=== PATIENT | female | born 1935 | race Caucasian/White ===

== ENCOUNTER 2017-05-07 23:50 | Inpatient (IN) | payer MEDICARE ==
[~2017-05-07] VITALS: Ht 162.6 cm; Wt 88.0 kg
[~2017-05-07 23:50] MED LIST: ALPR-624 PO; ASPI-611 PO; ATOR10TA70 PO; HYDR-569 PO; LEVO50TA8 PO; LOSA1TAB36 PO; METF1000 PO; TRAM50TA2 PO
[2017-05-08] VITALS: BP 121/58
[2017-05-08] MEDS ORDERED: ondansetron/PF 4mg/2ml inj IV ONE (00:20)
[2017-05-08] MEDS ORDERED: HYDROcodone/acetaminophen 5mg/325mg tablet PO ONE (00:20)
[2017-05-08 01:29] LABS: BASOPHILS % (AUTO) 0.3 % (0-1); EOSINOPHILS # (AUTO) 0.1 X10'3 (0-0.9); EOSINOPHILS % (AUTO) 1.2 % (0-6); HEMATOCRIT 33.1 % (35.0-45.0); HEMOGLOBIN 11.2 g/dl (12.0-16.0); LYMPHOCYTES # (AUTO) 1.5 X10'3 (1.1-4.8); LYMPHOCYTES % (AUTO) 15.1 % (21-51); MEAN CORPUSCULAR HEMOGLOBIN 26.6 PG (27.0-31.0); MEAN CORPUSCULAR HGB CONC 33.8 % (33.0-36.5); MEAN CORPUSCULAR VOLUME 78.8 FL (78-98); MEAN PLATELET VOLUME 8.3 FL (7.4-10.4); MONOCYTES # (AUTO) 0.5 X10'3 (0-0.9); MONOCYTES % (AUTO) 5.2 % (2-12); NEUTROPHILS # (AUTO) 7.8 X10'3 (1.8-7.7); NEUTROPHILS % (AUTO) 78.2 % (42-75); PLATELET COUNT 307 X10'3 (140-440); RED CELL DISTRIBUTION WIDTH 15.1 % (11.5-14.5); WHITE BLOOD COUNT 9.9 X10'3 (4.5-11.0)
[2017-05-08 01:48] LABS: ALANINE AMINOTRANSFERASE 914 U/L (12-78); ALBUMIN 3.4 G/DL (3.4-5.0); ALBUMIN/GLOBULIN RATIO 0.9 (1.1-1.5); ALKALINE PHOSPHATASE 260 IU/L (46-116); ANION GAP 10 (8-16); BILIRUBIN,TOTAL 1.5 MG/DL (0.1-1.0); BLOOD UREA NITROGEN 22 MG/DL (7-18); BUN/CREATININE RATIO 14.1 (6.6-38.0); CALCIUM 9.2 MG/DL (8.5-10.1); CHLORIDE 99 MMOL/L (99-107); CREATININE 1.56 MG/DL (0.40-0.90); GLUCOSE 235 MG/DL (70-104); MAGNESIUM 1.8 MG/DL (1.5-2.4); POTASSIUM 4.3 MMOL/L (3.5-5.1); SODIUM 133 MMOL/L (135-145); TOTAL CARBON DIOXIDE 23.8 MMOL/L (24-32); TOTAL PROTEIN 7.3 G/DL (6.4-8.2); eGFR 32 ML/MIN
[2017-05-08 01:57] LABS: ASPARTATE AMINO TRANSFERASE 1106 U/L (10-37)
[2017-05-08 02:03] LABS: LIPASE 28194 U/L (73-393)
[2017-05-08 02:06] LABS: PARTIAL THROMBOPLASTIN TIME 22 SECONDS (22-32); PROTHROMBIN TIME 9.7 SECONDS (9.0-12.0)
[2017-05-08] MEDS ORDERED: normal saline 1000ML IV soln IVB ONE (02:15)
[2017-05-08] MEDS ORDERED: piperacillin/tazo 4.5gm/100ml 100 ML IV ONE (02:25)
[2017-05-08] MEDS ORDERED: mag hydrox/Alum hydrox/simeth 30ml oral suspension PO PRN (05:00)
[2017-05-08] MEDS ORDERED: magnesium hydroxide 30ml (MOM) UD suspension PO PRN (05:00)
[2017-05-08] MEDS ORDERED: potassium Cl 40MEQ/NS 500ml 500 ML IV PRN ×2 (05:00)
[2017-05-08] MEDS ORDERED: magnesium 2GM in 50ml NS 50 ML IV PRN (05:00)
[2017-05-08] MEDS ORDERED: potassium Cl 20 mEq SR tablet PO PRN ×2 (05:00)
[2017-05-08] MEDS ORDERED: magnesium 4gm in 100ml NS 100 ML IV PRN (05:00)
[2017-05-08] MEDS ORDERED: magnesium Cl slow-release 64mg tablet PO PRN (05:00)
[2017-05-08] MEDS ORDERED: acetaminophen 325mg tablet PO PRN (05:00)
[2017-05-08] MEDS ORDERED: HYDROmorphone inj. 0.5 MG/0.5 ML DISP.SYRIN IV PRN ×2 (05:00)
[2017-05-08] MEDS ORDERED: ondansetron/PF 4mg/2ml inj IV PRN (05:00)
[2017-05-08] MEDS: normal saline 1000ml 1,000 ML IV SCH ×3 (05:32→23:58)
[2017-05-08 05:54] LABS: HEMOGLOBIN A1C 6.3 % (4.5-6.2)
[2017-05-08] MEDS: levoTHYROXINE 25mcg tablet PO SCH (07:00)
[2017-05-08] MEDS: K and/or MAG REPLACEMENT MC SCH (07:41)
[2017-05-08] MEDS: aspirin 81mg tablet.DR PO SCH (07:51)
[2017-05-08] MEDS: HYDROchlorothiazide 12.5mg capsule PO SCH (07:52)
[2017-05-08] MEDS ORDERED: ALPRAZolam 0.5mg tablet PO PRN (08:00)
[2017-05-08] MEDS ORDERED: losartan 50mg tablet PO SCH (08:00)
[2017-05-08] MEDS ORDERED: atorvastatin 10mg tablet PO SCH (08:00)
[2017-05-08] MEDS: levoFLOXACIN-Levaquin 500mg/D5 100 ML IV SCH (10:09)
[2017-05-08] MEDS ORDERED: ATOR10TA70 PO (11:02)
[2017-05-08 16:00] VITALS: BP 148/88
[2017-05-08] MEDS ORDERED: piperacillin/tazo 3.375gm/50ml 50 ML IV SCH (16:00)
[2017-05-08] MEDS ORDERED: morphine 2 MG/ML inj. syringe IV PRN ×2 (16:40)
[2017-05-08] MEDS ORDERED: LORazepam 1 MG tablet PO PRN (16:40)
[2017-05-08 20:00] VITALS: BP 157/74
[2017-05-09 05:34] LABS: BASOPHILS % (AUTO) 0.6 % (0-1); EOSINOPHILS # (AUTO) 0.4 X10'3 (0-0.9); HEMATOCRIT 31.7 % (35.0-45.0); HEMOGLOBIN 10.8 g/dl (12.0-16.0); LYMPHOCYTES # (AUTO) 1.5 X10'3 (1.1-4.8); LYMPHOCYTES % (AUTO) 26.7 % (21-51); MEAN CORPUSCULAR HEMOGLOBIN 26.8 PG (27.0-31.0); MEAN CORPUSCULAR HGB CONC 34.1 % (33.0-36.5); MEAN CORPUSCULAR VOLUME 78.7 FL (78-98); MEAN PLATELET VOLUME 7.9 FL (7.4-10.4); MONOCYTES # (AUTO) 0.4 X10'3 (0-0.9); MONOCYTES % (AUTO) 6.5 % (2-12); NEUTROPHILS # (AUTO) 3.3 X10'3 (1.8-7.7); NEUTROPHILS % (AUTO) 59.2 % (42-75); PLATELET COUNT 270 X10'3 (140-440); RED BLOOD COUNT 4.03 X10'6 (4.20-5.60); RED CELL DISTRIBUTION WIDTH 16.7 % (11.5-14.5); WHITE BLOOD COUNT 5.6 X10'3 (4.5-11.0)
[2017-05-09 05:49] LABS: ALANINE AMINOTRANSFERASE 707 U/L (12-78); ALBUMIN 3.2 G/DL (3.4-5.0); ALBUMIN/GLOBULIN RATIO 0.9 (1.1-1.5); ALKALINE PHOSPHATASE 259 IU/L (46-116); ANION GAP 10 (8-16); ASPARTATE AMINO TRANSFERASE 337 U/L (10-37); BILIRUBIN,TOTAL 1.6 MG/DL (0.1-1.0); BLOOD UREA NITROGEN 12 MG/DL (7-18); BUN/CREATININE RATIO 10.6 (6.6-38.0); CALCIUM 8.8 MG/DL (8.5-10.1); CHLORIDE 105 MMOL/L (99-107); CHOL/HDL RATIO 2.2 (0.00-4.99); CHOLESTEROL 114 MG/DL (0-200); CREATININE 1.13 MG/DL (0.40-0.90); GLUCOSE 99 MG/DL (70-104); HDL CHOLESTEROL 51 MG/DL (35-60); LDL CHOLESTEROL 47 MG/DL (50-100); LIPASE 471 U/L (73-393); MAGNESIUM 1.8 MG/DL (1.5-2.4); POTASSIUM 4.4 MMOL/L (3.5-5.1); SODIUM 138 MMOL/L (135-145); TOTAL PROTEIN 6.9 G/DL (6.4-8.2); TRIGLYCERIDES 66 MG/DL (20-135); eGFR 46 ML/MIN
[2017-05-09 08:00] VITALS: BP 116/53
[2017-05-09] MEDS ORDERED: losartan 25mg tablet PO SCH (08:00)
[2017-05-09] MEDS: K and/or MAG REPLACEMENT MC SCH (08:00)
[2017-05-09] MEDS ORDERED: pantoprazole 40 MG vial IV SCH (08:00)
[2017-05-09] MEDS: levoFLOXACIN-Levaquin 500mg/D5 100 ML IV SCH (08:05)
[2017-05-09] MEDS: levoTHYROXINE 25mcg tablet PO SCH (08:05)
[2017-05-09] MEDS: aspirin 81mg tablet.DR PO SCH (08:06)
[2017-05-09] MEDS: HYDROchlorothiazide 12.5mg capsule PO SCH (08:06)
[2017-05-09] MEDS ORDERED: diphenhydrAMINE 25mg capsule PO ONE (09:40)
[2017-05-09 12:00] VITALS: BP 142/72
== END 2017-05-09 13:56 | disposition home or self-care (01) | DRG 682 ==
LOC: ER 23:51 → ED HOLD 05-08 04:58 → MED 3N 05-08 15:30
PROVIDERS: ADMIT Internal Medicine; ATTEND Nurse Practitioner Family
DX: N17.9 Acute kidney failure, unspecified (principal); K85.90 Acute pancreatitis without necrosis or infection, unspecified; E11.65 Type 2 diabetes mellitus with hyperglycemia; D64.9 Anemia, unspecified; N18.9 Chronic kidney disease, unspecified; E03.9 Hypothyroidism, unspecified; F32.9 Major depressive disorder, single episode, unspecified; F41.9 Anxiety disorder, unspecified; G89.29 Other chronic pain; E78.00 Pure hypercholesterolemia, unspecified; E78.5 Hyperlipidemia, unspecified; I10 Essential (primary) hypertension; Z90.13 Acquired absence of bilateral breasts and nipples; Z90.49 Acquired absence of other specified parts of digestive tract; Z90.710 Acquired absence of both cervix and uterus; Z88.0 Allergy status to penicillin; Z79.84 Long term (current) use of oral hypoglycemic drugs; Z79.82 Long term (current) use of aspirin; Z79.899 Other long term (current) drug therapy; Z85.3 Personal history of malignant neoplasm of breast; Z80.9 Family history of malignant neoplasm, unspecified
CPT/HCPCS: 36415; 71045; 74176; 74181; 76700; 80053; 80061; 82948; 83036; 83605; 83690; 83735; 83880; 84484; 85025; 85610; 85730; 87040; 87070; 96365; 96375; 99285; C9113; J1956; J2405; J2543; J7030; Q0163

== ENCOUNTER 2019-02-04 06:13 | Emergency (ER) | payer MEDICARE ==
[~2019-02-04] VITALS: Ht 162.6 cm; Wt 71.0 kg
[~2019-02-04 06:13] MED LIST changes: -ATOR10TA70 PO; +HYDR-4383 PO; -HYDR-569 PO; -LOSA1TAB36 PO
[2019-02-04] MEDS ORDERED: LORazepam 1 MG tablet PO ONE (06:45)
[2019-02-04 06:59] VITALS: BP 186/90
[2019-02-04 07:35] LABS: CLARITY,URINE CLEAR (Clear); COLOR,URINE YELLOW (Yellow); GLUCOSE, URINE NEGATIVE (Neg); KETONES,URINE 15 mg/dl (Neg); LEUKOCYTE ESTERASE ,URINE SMALL (Neg); NITRITES, URINE NEGATIVE (Neg); OCCULT BLOOD,URINE NEGATIVE (Neg); PH,URINE 6.5 (4.8-8.0); PROTEIN,URINE NEGATIVE (Neg)
[2019-02-04 07:42] LABS: UA COLLECTION TYPE VOIDED; URINE AMPHETAMINE SCREEN NEGATIVE (Neg); URINE BARBITUATE SCREEN NEGATIVE (Neg); URINE BENZODIAZEPINES SCREEN NEGATIVE (Neg); URINE CANNABINOID SCREEN NEGATIVE (Neg); URINE COCAINE SCREEN NEGATIVE (Neg); URINE METHADONE SCREEN NEGATIVE (Neg); URINE OPIATE SCREEN POSITIVE (Neg); URINE PHENCYCLIDINE SCREEN NEGATIVE (Neg)
[2019-02-04 07:43] LABS: BACTERIA,URINE FEW /HPF (Neg); MUCUS STRANDS FEW /LPF (Neg); RBC,URINE 0-2 /HPF (0-2); SQUAMOUS EPITHELIAL CELL,UR FEW /LPF (FEW)
[2019-02-04 07:53] LABS: BASOPHILS % (AUTO) 0.3 % (0-1); EOSINOPHILS % (AUTO) 0.4 % (0-6); HEMATOCRIT 38.6 % (35.0-45.0); HEMOGLOBIN 13.2 g/dl (12.0-16.0); LYMPHOCYTES # (AUTO) 2.6 X10'3 (1.1-4.8); LYMPHOCYTES % (AUTO) 27.1 % (21-51); MEAN CORPUSCULAR HEMOGLOBIN 26.9 PG (27.0-31.0); MEAN CORPUSCULAR HGB CONC 34.1 g/dL (33.0-36.5); MEAN CORPUSCULAR VOLUME 78.7 FL (78-98); MEAN PLATELET VOLUME 7.1 FL (7.4-10.4); MONOCYTES # (AUTO) 0.5 X10'3 (0-0.9); MONOCYTES % (AUTO) 4.8 % (2-12); NEUTROPHILS # (AUTO) 6.6 X10'3 (1.8-7.7); NEUTROPHILS % (AUTO) 67.4 % (42-75); PLATELET COUNT 384 X10'3 (140-440); RED BLOOD COUNT 4.91 X10'6 (4.20-5.60); WHITE BLOOD COUNT 9.7 X10'3 (4.5-11.0)
[2019-02-04 08:07] LABS: ALANINE AMINOTRANSFERASE 25 U/L (12-78); ALBUMIN 4.2 G/DL (3.4-5.0); ALBUMIN/GLOBULIN RATIO 1.2 (1.1-1.5); ALKALINE PHOSPHATASE 58 IU/L (46-116); ANION GAP 10 (8-16); ASPARTATE AMINO TRANSFERASE 18 U/L (10-37); BILIRUBIN,TOTAL 0.8 MG/DL (0.1-1.0); BLOOD UREA NITROGEN 17 MG/DL (7-18); BUN/CREATININE RATIO 13.9 (6.6-38.0); CALCIUM 9.6 MG/DL (8.5-10.1); CHLORIDE 99 MMOL/L (99-107); CREATININE 1.22 MG/DL (0.40-0.90); GLUCOSE 109 MG/DL (70-104); POTASSIUM 3.7 MMOL/L (3.5-5.1); SODIUM 134 MMOL/L (135-145); TOTAL CARBON DIOXIDE 24.6 MMOL/L (24-32); TOTAL PROTEIN 7.6 G/DL (6.4-8.2); eGFR 42 ML/MIN
[2019-02-04 08:17] LABS: ETHANOL < 0.010 GM/DL (0.0-0.010); MAGNESIUM 1.7 MG/DL (1.5-2.4)
[2019-02-04] MEDS ORDERED: NITR100C6 PO (08:27)
== END 2019-02-04 09:03 | disposition home or self-care (01) ==
LOC: ER 06:13
DX: N39.0 Urinary tract infection, site not specified (principal); M54.40 Lumbago with sciatica, unspecified side; E78.00 Pure hypercholesterolemia, unspecified; I10 Essential (primary) hypertension; E11.9 Type 2 diabetes mellitus without complications; G89.29 Other chronic pain; F32.9 Major depressive disorder, single episode, unspecified; Z85.3 Personal history of malignant neoplasm of breast; Z90.710 Acquired absence of both cervix and uterus; Z98.890 Other specified postprocedural states; Z88.0 Allergy status to penicillin; Z79.82 Long term (current) use of aspirin; Z79.84 Long term (current) use of oral hypoglycemic drugs; Z79.899 Other long term (current) drug therapy
CPT/HCPCS: 36415; 80053; 80305; 80320; 81001; 83735; 84443; 85025; 87088; 99284

== ENCOUNTER 2019-02-27 14:37 | Observation (INO) | payer MEDICARE ==
[~2019-02-27] VITALS: Ht 162.6 cm; Wt 70.5 kg
[~2019-02-27 14:37] MED LIST changes: +NITR100C6 PO
--- NOTE | 2019-02-27 15:15 | NUR ---
CLARY ROLLINS AT BEDSIDE FOR EVALUATION NOW, ENRIQUETA STROKE NURSE AT BEDSIDE FOR EVALUATION OF LEVEL ONE STROKE NOW. PT APPEARS TO BE IMPROVING
[2019-02-27] MEDS ORDERED: aspirin 325mg tablet PO ONE (15:20)
[2019-02-27 15:34] LABS: BASOPHILS # (AUTO) 0.1 X10'3 (0-0.2); BASOPHILS % (AUTO) 0.6 % (0-1); EOSINOPHILS # (AUTO) 0.3 X10'3 (0-0.9); EOSINOPHILS % (AUTO) 3.1 % (0-6); HEMATOCRIT 35.9 % (35.0-45.0); HEMOGLOBIN 12.3 g/dl (12.0-16.0); LYMPHOCYTES # (AUTO) 3.9 X10'3 (1.1-4.8); LYMPHOCYTES % (AUTO) 37.4 % (21-51); MEAN CORPUSCULAR HGB CONC 34.2 g/dL (33.0-36.5); MEAN CORPUSCULAR VOLUME 78.8 FL (78-98); MEAN PLATELET VOLUME 7.1 FL (7.4-10.4); MONOCYTES # (AUTO) 0.7 X10'3 (0-0.9); MONOCYTES % (AUTO) 6.5 % (2-12); NEUTROPHILS # (AUTO) 5.5 X10'3 (1.8-7.7); NEUTROPHILS % (AUTO) 52.4 % (42-75); PLATELET COUNT 414 X10'3 (140-440); RED BLOOD COUNT 4.55 X10'6 (4.20-5.60); RED CELL DISTRIBUTION WIDTH 17.8 % (11.5-14.5); WHITE BLOOD COUNT 10.5 X10'3 (4.5-11.0)
[2019-02-27 15:48] LABS: PARTIAL THROMBOPLASTIN TIME 23 SECONDS (22-32)
[2019-02-27 15:52] LABS: ALANINE AMINOTRANSFERASE 26 U/L (12-78); ALBUMIN 3.9 G/DL (3.4-5.0); ALBUMIN/GLOBULIN RATIO 1.1 (1.1-1.5); ALKALINE PHOSPHATASE 70 IU/L (46-116); ANION GAP 12 (8-16); ASPARTATE AMINO TRANSFERASE 18 U/L (10-37); BILIRUBIN,TOTAL 0.7 MG/DL (0.1-1.0); BLOOD UREA NITROGEN 18 MG/DL (7-18); BUN/CREATININE RATIO 14.9 (6.6-38.0); CALCIUM 9.8 MG/DL (8.5-10.1); CHLORIDE 99 MMOL/L (99-107); CREATININE 1.21 MG/DL (0.40-0.90); GLUCOSE 92 MG/DL (70-104); POTASSIUM 3.3 MMOL/L (3.5-5.1); SODIUM 136 MMOL/L (135-145); TOTAL CARBON DIOXIDE 25.3 MMOL/L (24-32); TOTAL PROTEIN 7.5 G/DL (6.4-8.2); eGFR 42 ML/MIN
[2019-02-27 15:54] LABS: TROPONIN I < 0.04 NG/ML (0.0-0.05)
[2019-02-27] MEDS ORDERED: acetaminophen 325mg tablet PO PRN ×2 (17:40)
[2019-02-27] MEDS ORDERED: mag hydrox/Alum hydrox/simeth 30ml oral suspension PO PRN (17:40)
[2019-02-27] MEDS ORDERED: ondansetron/PF 4mg/2ml inj IV PRN (17:40)
[2019-02-27] MEDS ORDERED: morphine 2 MG/ML inj. syringe IV PRN ×2 (17:40)
[2019-02-27] MEDS ORDERED: magnesium hydroxide 30ml (MOM) UD suspension PO PRN (17:40)
[2019-02-27] MEDS ORDERED: HYDR-3972 PO (18:32)
[2019-02-27] MEDS ORDERED: OXYB5TAB5 PO (18:32)
[2019-02-27] MEDS ORDERED: ATOR10TA70 PO (18:32)
[2019-02-27 20:00] VITALS: BP 189/82
[2019-02-28] VITALS: BP 169/79
[2019-02-28] MEDS ORDERED: ALPRAZolam 0.25mg tablet PO PRN (00:20)
[2019-02-28] MEDS: HYDROcodone/acetaminophen 10/325mg tab PO PRN ×2 (01:11→09:23)
[2019-02-28 06:00] VITALS: BP 139/60
[2019-02-28 06:31] LABS: BASOPHILS % (AUTO) 0.6 % (0-1); EOSINOPHILS # (AUTO) 0.6 X10'3 (0-0.9); EOSINOPHILS % (AUTO) 8.5 % (0-6); HEMATOCRIT 32.3 % (35.0-45.0); HEMOGLOBIN 11.1 g/dl (12.0-16.0); LYMPHOCYTES % (AUTO) 40.7 % (21-51); MEAN CORPUSCULAR HEMOGLOBIN 27.1 PG (27.0-31.0); MEAN CORPUSCULAR HGB CONC 34.3 g/dL (33.0-36.5); MEAN CORPUSCULAR VOLUME 79.2 FL (78-98); MEAN PLATELET VOLUME 7.5 FL (7.4-10.4); MONOCYTES # (AUTO) 0.5 X10'3 (0-0.9); MONOCYTES % (AUTO) 6.4 % (2-12); NEUTROPHILS # (AUTO) 3.3 X10'3 (1.8-7.7); NEUTROPHILS % (AUTO) 43.8 % (42-75); PLATELET COUNT 362 X10'3 (140-440); RED BLOOD COUNT 4.08 X10'6 (4.20-5.60); RED CELL DISTRIBUTION WIDTH 18.1 % (11.5-14.5); WHITE BLOOD COUNT 7.5 X10'3 (4.5-11.0)
--- NOTE | 2019-02-28 06:37 | NUR ---
Problems reprioritized. Patient report given, questions answered & plan of care reviewed with ALY BRADEN.
[2019-02-28 06:56] LABS: ALBUMIN 3.5 G/DL (3.4-5.0); ANION GAP 8 (8-16); BLOOD UREA NITROGEN 16 MG/DL (7-18); BUN/CREATININE RATIO 15.5 (6.6-38.0); CALCIUM 9.3 MG/DL (8.5-10.1); CHLORIDE 101 MMOL/L (99-107); CHOL/HDL RATIO 3.2 (0.00-4.99); CHOLESTEROL 146 MG/DL (0-200); CREATININE 1.03 MG/DL (0.40-0.90); GLUCOSE 90 MG/DL (70-104); HDL CHOLESTEROL 45 MG/DL (35-60); LDL CHOLESTEROL 90 MG/DL (50-100); POTASSIUM 3.3 MMOL/L (3.5-5.1); SODIUM 138 MMOL/L (135-145); TOTAL CARBON DIOXIDE 28.7 MMOL/L (24-32); TRIGLYCERIDES 91 MG/DL (20-135); eGFR 51 ML/MIN
[2019-02-28] MEDS ORDERED: aspirin 81mg tablet.DR PO SCH (08:00)
[2019-02-28] MEDS ORDERED: HYDROcodone/acetaminophen 10/325mg tab PO PRN ×2 (08:35→13:55)
[2019-02-28] MEDS ORDERED: oxybutynin 5mg tablet PO SCH (09:00)
[2019-02-28] MEDS ORDERED: levoTHYROXINE 25mcg tablet PO SCH (09:00)
[2019-02-28 10:00] VITALS: BP 105/56
[2019-02-28] MEDS ORDERED: HYDR12.5 PO (11:42)
--- NOTE | 2019-02-28 13:49 | NUR ---
PAGER ID: [phone] MESSAGE: [id number] Emily Paiz Can we change her [place] to Q4 she is at a 09/01 right now. Amanda [id number]
--- NOTE | 2019-02-28 15:11 | NUR ---
PAGER ID: [phone] MESSAGE: [id number] Emily Paiz Patient Carotids are done, waiting on the report. Amanda
[2019-02-28] MEDS ORDERED: ATOR20TA66 PO (15:52)
[2019-02-28] MEDS ORDERED: CLOP75TA15 PO (15:52)
[2019-02-28] MEDS ORDERED: metFORMIN 500mg tablet PO SCH (20:00)
[2019-03-01] MEDS ORDERED: atorvastatin 10mg tablet PO SCH (08:00)
[2019-03-01] MEDS ORDERED: non-formulary drug (Aspirin (Aspir 81) 1 TAB) PO SCH (08:00)
--- NOTE | 2019-03-03 13:54 | NUR ---
Case Management DC follow-up: Spoke w/pt via telephone. No indication of slurred speech, or confusion. Answered questions appropriately. pt contacted PCP for follow up appts & to ensure that it was ok to start new Rx, Lipitor, Plavix. PCP(Dr Arndt) gave her the okay. Pt understands what medications she is taking and what they are for. Pt states she is feeling great, asymptomatic of s/s stroke. No ase r/t medications. No further question at this time.
== END 2019-02-28 17:15 | disposition home or self-care (01) ==
LOC: ER 14:38 → ED HOLD 17:38 → ORTHO 4S 19:55
PROVIDERS: ADMIT Internal Medicine; ATTEND Internal Medicine
DX: G45.9 Transient cerebral ischemic attack, unspecified (principal); E11.9 Type 2 diabetes mellitus without complications; E78.5 Hyperlipidemia, unspecified; E03.9 Hypothyroidism, unspecified; G89.29 Other chronic pain; E78.00 Pure hypercholesterolemia, unspecified; I10 Essential (primary) hypertension; M54.9 Dorsalgia, unspecified; F32.9 Major depressive disorder, single episode, unspecified; Z86.73 Personal history of transient ischemic attack (TIA), and cerebral infarction without residual deficits; Z85.3 Personal history of malignant neoplasm of breast; Z90.49 Acquired absence of other specified parts of digestive tract; Z90.710 Acquired absence of both cervix and uterus; Z90.13 Acquired absence of bilateral breasts and nipples; Z79.84 Long term (current) use of oral hypoglycemic drugs; Z79.82 Long term (current) use of aspirin; Z79.02 Long term (current) use of antithrombotics/antiplatelets; Z79.899 Other long term (current) drug therapy; Z88.0 Allergy status to penicillin
CPT/HCPCS: 36415; 70450; 71045; 80048; 80053; 80061; 82948; 83036; 83880; 84484; 85025; 85610; 85651; 85730; 87081; 93005; 93306; 93880; 97116; 97161; 97530; 99284; G0378

== ENCOUNTER 2022-01-07 12:07 | Day surgery (SDC) | payer MEDICARE ==
[~2022-01-07] VITALS: Ht 165.1 cm; Wt 65.3 kg
[~2022-01-07 12:07] MED LIST changes: +ATOR20TA66 PO; +CLOP75TA15 PO; +HYDR-3972 PO; -HYDR-4383 PO; +HYDR12.5 PO; -NITR100C6 PO; +OXYB-58 PO; -TRAM50TA2 PO
[2022-01-07] MEDS ORDERED: fentaNYL/PF 50MCG/1 ML 2ML syringe IV ONE (12:25)
[2022-01-07] MEDS ORDERED: normal saline 1000ml 1,000 ML IV SCH (12:25)
[2022-01-07] MEDS ORDERED: MIDAZolam 1mg/ml 10ml vial IV ONE (12:25)
[2022-01-07] MEDS ORDERED: CHOL100046 PO (12:39)
[2022-01-07] MEDS ORDERED: CLOP75TA34 PO (12:39)
[2022-01-07] MEDS ORDERED: METF-1203 PO (12:39)
[2022-01-07 12:40] VITALS: BP 164/78
[2022-01-07 13:13] LABS: BASOPHILS % (AUTO) 0.6 % (0-1); EOSINOPHILS # (AUTO) 0.1 X10'3 (0-0.9); EOSINOPHILS % (AUTO) 1.8 % (0-6); HEMATOCRIT 34.7 % (35.0-45.0); HEMOGLOBIN 11.2 g/dl (12.0-16.0); LYMPHOCYTES # (AUTO) 2.3 X10'3 (1.1-4.8); LYMPHOCYTES % (AUTO) 34.2 % (21-51); MEAN CORPUSCULAR HGB CONC 32.4 g/dL (33.0-36.5); MEAN CORPUSCULAR VOLUME 77.1 FL (78-98); MEAN PLATELET VOLUME 8.1 FL (7.4-10.4); MONOCYTES # (AUTO) 0.5 X10'3 (0-0.9); MONOCYTES % (AUTO) 6.9 % (2-12); NEUTROPHILS # (AUTO) 3.8 X10'3 (1.8-7.7); NEUTROPHILS % (AUTO) 56.5 % (42-75); PLATELET COUNT 286 X10'3 (140-440); RED CELL DISTRIBUTION WIDTH 16.4 % (11.5-14.5); WHITE BLOOD COUNT 6.7 X10'3 (4.5-11.0)
[2022-01-07 13:16] LABS: ALBUMIN 3.9 G/DL (3.4-5.0); ANION GAP 9 (8-16); BLOOD UREA NITROGEN 12 MG/DL (7-18); BUN/CREATININE RATIO 10.3 (6.6-38.0); CALCIUM 9.6 MG/DL (8.5-10.1); CHLORIDE 101 MMOL/L (99-107); CREATININE 1.16 MG/DL (0.40-0.90); GLUCOSE 87 MG/DL (70-104); POTASSIUM 3.6 MMOL/L (3.5-5.1); SODIUM 133 MMOL/L (135-145); TOTAL CARBON DIOXIDE 22.8 MMOL/L (24-32); eGFR 44 ML/MIN
--- NOTE | 2022-01-07 14:30 | NUR ---
Pt and had discussion with Dr. Marcos Ramirez, decision made to only do limited trans-thorasic echocardiogram vs ELIER.
[2022-01-07 15:06] VITALS: BP 164/78
== END 2022-01-07 15:15 | disposition home or self-care (01) ==
LOC: SSTAY O 12:07 → EDSTATUS 17:00
PROVIDERS: ATTEND Student in an Organized Health Care Education/Training Program
DX: I35.0 Nonrheumatic aortic (valve) stenosis (principal); I10 Essential (primary) hypertension; Z79.899 Other long term (current) drug therapy; Z98.890 Other specified postprocedural states; E11.9 Type 2 diabetes mellitus without complications; E03.9 Hypothyroidism, unspecified; Z88.0 Allergy status to penicillin
CPT/HCPCS: 36415; 80048; 82948; 85025; 85610; 93308; J7030; A4620